=== PATIENT | male | born 1945 | race Caucasian/White ===

== ENCOUNTER 2018-01-21 07:58 | Day surgery (SDC) | payer MEDICARE, OTHER ==
[2018-01-21] VITALS (379 sets, daily range): BP systolic 111–150; BP diastolic 39–72; PULSE 54–64; TEMP 97.5–981; O2SAT 84–100
[~2018-01-21] VITALS: Ht 175.3 cm; Wt 96.6 kg
[~2018-01-21 07:58] MED LIST: ASPIRIN 32325 MG/TAB PO; B-121000 MCG PO; CLARITIN 1010 MG/TAB PO; COREG12.5 MG PO; FLOMAX 0.40.4 MG/CAP PO; GLUMETZA500 MG PO; HYZAAR 25 MG-101 TAB PO; LIPITOR 40MG TA40 MG PO; OMEGA-31000 MG PO; PERCOCET 325 MG1 TA2 PO; PLAVIX 75MG TAB75 MG PO; REQUIP 0.5MG0.5 MG PO; VITAMIN D32000 I1 PO; ZANTAC 150MG T150 MG PO
[2018-01-21] MEDS ORDERED: NITROSTAT0.4 MG/TAB SL (08:12)
[2018-01-21] MEDS ORDERED: VITAMIN B COMPL1 SGL PO (08:12)
[2018-01-21] MEDS ORDERED: OMEGA-3 1000 MG1 CAP PO (08:13)
[2018-01-21 08:40] LABS: HEMATOCRIT 40.4 % (42.0-52.0); HEMOGLOBIN 13.4 g/dl (13.5-18.0); MEAN CELL VOLUME 95 fl (80.0-100.0); MEAN CORPUSCULAR HEMOGLOBIN 32 pg (27.0-31.0); MEAN CORPUSCULAR HGB CONC 33 g/dl (33.0-37.0); MEAN PLATELET VOLUME 9.9 fl (7.4-10.4); PLATELET COUNT 165 K/mm3 (130-400); RED BLOOD COUNT 4.24 M/mm3 (4.20-5.60); REDCELL DISTRIBUTION WIDTH-CV 12.7 % (11.5-14.5)
[2018-01-21 08:44] LABS: CALCIUM 9.4 mg/dL (8.4-10.2); CREATININE, serum 0.92 mg/dL (0.66-1.25); POTASSIUM 4.3 mmol/L (3.4-5.0)
[2018-01-22] VITALS: BP 127/71; PULSE 67; TEMP 98.3
[2018-01-22 04:00] VITALS: BP 110/52; PULSE 62; TEMP 97.4
[2018-01-22 05:39] LABS: BASO % 0.7 % (0.0-2.0); EOS # 0.2 (0.0-0.7); EOS % 3.6 % (0-4.0); GRAN # 3.3 (1.4-6.5); GRAN % 53.3 % (42.2-75.2); HEMOGLOBIN 11.9 g/dl (13.5-18.0); LYMPH # 1.9 (1.2-3.4); LYMPH % 30.4 % (20.0-51.0); MEAN CELL VOLUME 96 fl (80.0-100.0); MEAN CORPUSCULAR HEMOGLOBIN 32 pg (27.0-31.0); MEAN CORPUSCULAR HGB CONC 33 g/dl (33.0-37.0); MEAN PLATELET VOLUME 9.6 fl (7.4-10.4); MONO # 0.7 (0.1-0.6); MONO % 11.8 % (1.7-9.3); PLATELET COUNT 137 K/mm3 (130-400); RED BLOOD COUNT 3.74 M/mm3 (4.20-5.60); REDCELL DISTRIBUTION WIDTH-CV 12.9 % (11.5-14.5)
[2018-01-22 05:42] LABS: HEMATOCRIT 35.8 % (42.0-52.0)
[2018-01-22 05:53] LABS: CALCIUM 8.8 mg/dL (8.4-10.2); CREATININE, serum 0.92 mg/dL (0.66-1.25); POTASSIUM 3.8 mmol/L (3.4-5.0)
[2018-01-22 08:00] VITALS: BP 141/80; BP 142/80; PULSE 62; TEMP 97.6
[2018-01-22] MEDS ORDERED: IMDUR 30MG30 MG/TAB PO (10:09)
[2018-01-22] MEDS ORDERED: COREG 25MG25 MG/TAB PO (10:09)
[2018-01-22] MEDS ORDERED: LIPITOR 80MG80 MG PO (10:09)
[2018-01-22] MEDS ORDERED: ASPIRIN E.C. 8181 MG PO (10:10)
== END 2018-01-22 12:15 | disposition home or self-care (01) ==
LOC: COL.CAR 07:58 → ICU 11:52 → COL.CAR 01-22 12:15
PROVIDERS: Internal Medicine Cardiovascular Disease; Nurse Practitioner
DX: I25.10 Atherosclerotic heart disease of native coronary artery without angina pectoris (principal); I70.201 Unspecified atherosclerosis of native arteries of extremities, right leg; Z95.5 Presence of coronary angioplasty implant and graft; I73.9 Peripheral vascular disease, unspecified; E11.9 Type 2 diabetes mellitus without complications; Z79.82 Long term (current) use of aspirin; Z79.02 Long term (current) use of antithrombotics/antiplatelets; Z79.899 Other long term (current) drug therapy; I10 Essential (primary) hypertension; E78.5 Hyperlipidemia, unspecified; R06.02 Shortness of breath
CPT/HCPCS: OP; C1725; C1760; C1769; C1874; C1887; C1894; C9600; C9601; J0583; J1644; J2250; J3010

== ENCOUNTER 2019-12-22 07:49 | Day surgery (SDC) | payer MEDICARE, OTHER ==
[2019-12-22] VITALS (311 sets, daily range): BP systolic 112–137; BP diastolic 47–82; PULSE 52–70; TEMP 97.3–97.6; O2SAT 92–100
[~2019-12-22] VITALS: Ht 175.3 cm; Wt 91.5 kg
[~2019-12-22 07:49] MED LIST changes: +ASPIRIN E.C. 8181 MG PO; +COREG 25MG25 MG/TAB PO; +IMDUR 30MG30 MG/TAB PO; +LIPITOR 80MG80 MG PO; +NITROSTAT0.4 MG/TAB SL; +OMEGA-3 1000 MG1 CAP PO; +VITAMIN B COMPL1 SGL PO
[2019-12-22] MEDS ORDERED: ASPI325T6 PO (08:38)
[2019-12-22] MEDS ORDERED: COREG12.5 MG PO (08:39)
[2019-12-22 08:41] LABS: HEMOGLOBIN 12.1 g/dl (13.5-18.0); MEAN CELL VOLUME 97 fl (80.0-100.0); MEAN CORPUSCULAR HEMOGLOBIN 32 pg (27.0-31.0); MEAN CORPUSCULAR HGB CONC 33 g/dl (33.0-37.0); MEAN PLATELET VOLUME 9.8 fl (7.4-10.4); PLATELET COUNT 174 K/mm3 (130-400); RED BLOOD COUNT 3.77 M/mm3 (4.20-5.60); REDCELL DISTRIBUTION WIDTH-CV 13.2 % (11.5-14.5)
[2019-12-22] MEDS ORDERED: IMDUR 30MG30 MG/TAB PO (08:41)
[2019-12-22 08:42] LABS: PROTHROMBIN TIME 11.3 SECONDS (9.7-12.8)
[2019-12-22 08:44] LABS: HEMATOCRIT 36.4 % (42.0-52.0); PARTIAL THROMBOPLASTIN TIME 39.4 SECONDS (26.0-37.0)
[2019-12-22 08:48] LABS: CALCIUM 9.2 mg/dL (8.4-10.2); CREATININE, serum 1.05 (0.66-1.25); POTASSIUM 4.3 mmol/L (3.4-5.0)
[2019-12-22] MEDS ORDERED: NEURONTIN300 MG/CAP PO (08:53)
[2019-12-22] MEDS ORDERED: PROTONIX 40MG T40 MG PO (08:53)
[2019-12-22] MEDS ORDERED: FERROUS SU325 MG/TAB PO (08:54)
[2019-12-22] MEDS ORDERED: HCTZ 25MG TAB25 MG PO (08:55)
[2019-12-22] MEDS ORDERED: BENICAR40 MG PO (08:57)
--- NOTE | 2019-12-22 10:30 | NUR ---
SEE MERGE DOCUMENTATION FOR MEDICATION ADMINISTRATION TIMES AND INTRA/POST PROCEDURE SEDATION ASSESSMENTS. PLAN FOR RIGHT FEMORAL ACCESS.
--- NOTE | 2019-12-22 19:30 | NUR ---
Resting in bed at this time. Denies any pain or shortness of air. Groin site checked. Soft, and non-tender with scant drainage. Call light left within reach.
[2019-12-23] VITALS (388 sets, daily range): BP systolic 114–136; BP diastolic 46–60; PULSE 69–77; TEMP 97.6–98; O2SAT 91–99
--- NOTE | 2019-12-23 01:10 | NUR ---
Reporting back pain and difficulty sleeping. Reports that he has chronic back pain. Administered PRN tylenol and melatonin. Assisted patient to move to a recliner for comfort. Reports back feels better in the chair. Call light left within reach. Will continue to monitor.
[2019-12-23 04:45] LABS: BASO % 0.5 % (0.0-2.0); EOS # 0.2 (0.0-0.7); EOS % 3.2 % (0-4.0); GRAN # 3.8 (1.4-6.5); GRAN % 57.9 % (42.2-75.2); HEMATOCRIT 35.1 % (42.0-52.0); HEMOGLOBIN 11.7 g/dl (13.5-18.0); LYMPH % 30.3 % (20.0-51.0); MEAN CELL VOLUME 97 fl (80.0-100.0); MEAN CORPUSCULAR HEMOGLOBIN 32 pg (27.0-31.0); MEAN CORPUSCULAR HGB CONC 33 g/dl (33.0-37.0); MEAN PLATELET VOLUME 10.1 fl (7.4-10.4); MONO # 0.5 (0.1-0.6); MONO % 7.9 % (1.7-9.3); PLATELET COUNT 171 K/mm3 (130-400); RED BLOOD COUNT 3.63 M/mm3 (4.20-5.60); REDCELL DISTRIBUTION WIDTH-CV 12.9 % (11.5-14.5)
[2019-12-23 04:58] LABS: CALCIUM 8.8 mg/dL (8.4-10.2); CREATININE, serum 1.08 (0.66-1.25); POTASSIUM 4.3 mmol/L (3.4-5.0)
--- NOTE | 2019-12-23 07:50 | NUR ---
Sitting up eating breakfast, no chest pain/soa. Plan of care reviewed with patient.
--- NOTE | 2019-12-23 11:30 | NUR ---
Plan to return home with friend Omaira Mojica . Patient reports that he resides in independently. Patient has family involved in care; Son Ra Jane , DTR Lanny Jameselizabeth , and Dinora Winter . Patient reports that he is unstable on his feet and uses an electronic wheelchair to get around his home. Patient reports that he has a walker, cane, and CPAP. Patient indicated that he does have difficulty getting around his home. Patient indicaited that he uses [facility] for RX or [facility]. PCP is Dr. Brown and [facility]. Patient reports that he is able to transport himself. Declined homehealth setup. Patient denies having any additonal care concerns. SW educated patient on supports and community services. Additional need identified for home health supports, services declined at this time. Nothing Follows.
--- NOTE | 2019-12-23 12:35 | NUR ---
Sitting up in recliner. Denies pain/nausea/discomfort. Awaiting Cardiology to DC.
[2019-12-23] MEDS ORDERED: LIPITOR 80MG80 MG PO (15:07)
--- NOTE | 2019-12-23 15:45 | NUR ---
DC home ambulatory acc by spouse. IV dcd intact. DC instructions reviewed and questions addressed.
== END 2019-12-23 15:15 | disposition home or self-care (01) ==
LOC: COL.CAR 07:49 → ICU 16:05 → COL.CAR 12-23 15:15
PROVIDERS: Internal Medicine Cardiovascular Disease
DX: T82.855A Stenosis of coronary artery stent, initial encounter (principal); I25.110 Atherosclerotic heart disease of native coronary artery with unstable angina pectoris; I25.2 Old myocardial infarction; I10 Essential (primary) hypertension; I35.9 Nonrheumatic aortic valve disorder, unspecified; E78.5 Hyperlipidemia, unspecified; E11.9 Type 2 diabetes mellitus without complications; G47.33 Obstructive sleep apnea (adult) (pediatric); I73.9 Peripheral vascular disease, unspecified; G89.29 Other chronic pain; K21.9 Gastro-esophageal reflux disease without esophagitis; G25.81 Restless legs syndrome; D50.9 Iron deficiency anemia, unspecified; Z79.01 Long term (current) use of anticoagulants; Z88.1 Allergy status to other antibiotic agents; Z85.46 Personal history of malignant neoplasm of prostate; Z95.828 Presence of other vascular implants and grafts; Z79.82 Long term (current) use of aspirin; Z79.899 Other long term (current) drug therapy; Z79.84 Long term (current) use of oral hypoglycemic drugs; Z87.891 Personal history of nicotine dependence
CPT/HCPCS: OP; J0583; J1644; J2250; J3010; Q9967